=== PATIENT | male | born 1985 | race Caucasian/White ===

== ENCOUNTER 2017-03-13 17:59 | Emergency (ER) | payer OTHER ==
[~2017-03-13] VITALS: Ht 180.3 cm; Wt 91.2 kg
[2017-03-13 19:47] VITALS: BP 115/76
== END 2017-03-13 19:47 | disposition other institution (70) ==
LOC: ED 17:59
DX: F11.90 Opioid use, unspecified, uncomplicated (principal); E11.9 Type 2 diabetes mellitus without complications; Z79.4 Long term (current) use of insulin